=== PATIENT | female | born 1960 | race Asian ===

== ENCOUNTER 2025-10-01 06:49 | Day surgery (SDC) | payer OTHER ==
[~2025-10-01] VITALS: Ht 154.9 cm; Wt 62.2 kg
[~2025-10-01 06:49] MED LIST: SODIUM CHLORIDE 0.9% 1,000 ML ONE
[2025-10-01] MEDS ORDERED: MIDAZOLAM HCL 2 MG/2 ML VIAL ONE (08:08)
[2025-10-01] MEDS ORDERED: FentaNYL CITRATE PF 100 MCG/2 ML VIAL ONE (08:08)
[2025-10-01] MEDS: SODIUM CHLORIDE 0.9% 1,000 ML IV ONE (08:29)
[2025-10-01 08:46] LABS: GLUCOMETER DEV NAME(LOC) SDS.; GLUCOSE,POINT OF CARE 160 MG/DL (70-110)
[2025-10-01 09:30] VITALS: PULSE 71; RESP 20; O2SAT 99
[2025-10-01] MEDS ORDERED: LIDOCAINE 2% 11 ML JELLY ONE (15:19)
[2025-10-01] MEDS ORDERED: ALBUTEROL SULFATE 2.5 MG/0.5 ML NEB SOLUTION NEB ONE (15:19)
[2025-10-01] MEDS ORDERED: LIDOCAINE 4% 50 ML SOLUTION ONE (15:19)
[2025-10-01] MEDS ORDERED: BENZOCAINE 20% 50 MCG/SPRAY 57 GM ONE (15:19)
== END 2025-10-01 12:55 | disposition home or self-care (01) ==
LOC: EDSEX 06:49 → SURGERY 06:49
PROVIDERS: ATTEND Internal Medicine Critical Care Medicine
DX: J38.4 Edema of larynx (principal); B37.0 Candidal stomatitis; R05.3 Chronic cough; R06.2 Wheezing; R04.2 Hemoptysis; E78.00 Pure hypercholesterolemia, unspecified; E11.9 Type 2 diabetes mellitus without complications; Z98.41 Cataract extraction status, right eye
CPT/HCPCS: 31623; 82962; 87206; 87101; 87220; 87070; 88108; 31624; 71045; 87015; J3010; J2250; J2919; J7030; J7613; Z7610